=== PATIENT | female | born 1995 | race Caucasian/White ===

== ENCOUNTER 2018-05-15 14:15 | Outpatient (CLI) | payer MEDICAID | END 2018-05-15 15:50 | disposition home or self-care (01) | LOC: OBT 14:15 → L-D 14:15 → OBT 15:50 | DX: O36.8130 Decreased fetal movements, third trimester, not applicable or unspecified (principal); Z3A.38 38 weeks gestation of pregnancy | CPT/HCPCS: 76815; 76818 ==

== ENCOUNTER 2018-05-17 10:43 | Outpatient (CLI) | payer MEDICAID | END 2018-05-17 12:30 | disposition home or self-care (01) | LOC: OBT 10:43 → L-D 10:43 → OBT 12:30 | DX: O36.8130 Decreased fetal movements, third trimester, not applicable or unspecified (principal); Z3A.38 38 weeks gestation of pregnancy | CPT/HCPCS: 76818 ==

== ENCOUNTER 2018-05-18 12:16 | Outpatient (CLI) | payer MEDICAID | END 2018-05-18 15:50 | disposition home or self-care (01) | LOC: OBT 12:16 → L-D 12:16 → OBT 15:50 | DX: O41.03X0 Oligohydramnios, third trimester, not applicable or unspecified (principal); Z3A.38 38 weeks gestation of pregnancy | CPT/HCPCS: 76818 ==

== ENCOUNTER 2018-05-20 12:50 | Outpatient (CLI) | payer MEDICAID ==
[2018-05-20 14:03] LABS: ADD UMIC NO; UR ASCORBIC ACID NEGATIVE (NEGATIVE); UR BILIRUBIN (Dip) NEGATIVE (NEGATIVE); UR BLOOD (Dip) NEGATIVE (NEGATIVE); UR CLARITY CLEAR (CLEAR); UR COLOR YELLOW (YELLOW); UR GLUCOSE (Dip) NEGATIVE (NEGATIVE); UR KETONES (Dip) NEGATIVE (NEGATIVE); UR LEUKOCYTE ESTERASE (Dip) NEGATIVE Leu/ul (NEGATIVE); UR NITRITE (Dip) NEGATIVE (NEGATIVE); UR TOTAL PROTEIN (Dip) NEGATIVE (NEGATIVE); UR UROBILINOGEN (Dip) NEGATIVE (NEGATIVE)
[2018-05-20 14:16] LABS: RUPTURE FETAL MEMBRANES NEGATIVE (NEGATIVE)
== END 2018-05-20 16:00 | disposition home or self-care (01) ==
LOC: OBT 12:50 → L-D 12:50 → OBT 16:00
DX: O47.1 False labor at or after 37 completed weeks of gestation (principal); Z3A.39 39 weeks gestation of pregnancy
CPT/HCPCS: 76818; 81003; 84112; 87086

== ENCOUNTER 2018-05-26 07:04 | Inpatient (IN) | payer MEDICAID ==
[2018-05-26] MEDS ORDERED: CARBOPROST 250 MCG INJ IM (08:00)
[2018-05-26] MEDS ORDERED: MISOPROSTOL 200 MCG TAB PR (08:00)
[2018-05-26] MEDS ORDERED: IBUPROFEN 600 MG TAB PO (08:00)
[2018-05-26] MEDS ORDERED: LIDOCAINE 1% (MPF) 30 ML INJ INJ (08:00)
[2018-05-26] MEDS ORDERED: METHYLERGONOVINE 0.2 MG INJ IM (08:00)
[2018-05-26] MEDS ORDERED: BUTORPHANOL 2 MG INJ IV (08:00)
[2018-05-26] MEDS ORDERED: OXYTOCIN 30 UNITS/LR 500 ML IV (08:00)
[2018-05-26] MEDS: MISOPROSTOL 100 MCG TAB VAG (09:00)
[2018-05-26] MEDS: LACTATED RINGER'S 1,000 ML IV* ×2 (09:17→17:04)
[2018-05-26 09:39] LABS: ADD MAN DIFF? NO
[2018-05-26 09:44] LABS: WHITE BLOOD COUNT 7.2 10^3/ul (4.8-10.8)
[2018-05-26 09:44] LABS: BASOPHILS % 0.1 % (0.0-2.0); EOSINOPHILS % 0.6 % (0.0-7.0); HEMATOCRIT 36.6 % (37.0-47.0); HEMOGLOBIN 12.2 g/dl (12.0-16.0); LYMPHOCYTES # 1.4 10^3/ul (0.8-2.9); LYMPHOCYTES % 19.1 % (15.0-51.0); MEAN CORPUSCULAR HEMOGLOBIN 28.8 pg (29.0-33.0); MEAN CORPUSCULAR HGB CONC 33.3 g/dl (32.0-37.0); MEAN CORPUSCULAR VOLUME 86.5 fl (82.0-101.0); MEAN PLATELET VOLUME 10.9 fl (7.4-10.4); MONOCYTE # 0.6 10^3/ul (0.3-0.9); MONOCYTES % 8.9 % (0.0-11.0); NEUTROPHIL # 5.1 10^3/ul (1.6-7.5); NEUTROPHILS % 70.3 % (39.0-77.0); PLATELET COUNT 200 10^3/UL (140-415); RED BLOOD COUNT 4.23 10^6/ul (4.20-5.40); RED CELL DISTRIBUTION WIDTH 15.1 % (11.5-14.5)
[2018-05-26 10:07] LABS: INR 0.78; PROTIME 10.9 Sec (11.9-14.9); PT RATIO 0.9
[2018-05-26] MEDS: AMPICILLIN 2 GM/NS (PMX) 100 ML IV (10:36)
[2018-05-26] MEDS: AMPICILLIN 1 GM/NS (PMX) 50 ML IV ×3 (12:00→18:28)
[2018-05-26] MEDS: OXYTOCIN 30 UNITS/LR 500 ML IV (14:01)
[2018-05-26 15:24] LABS: RAPID PLASMA REAGIN NONREACTIVE (NR)
[2018-05-27] MEDS: LACTATED RINGER'S 1,000 ML IV* ×3 (00:46→10:18)
[2018-05-27] MEDS ORDERED: ONDANSETRON 4 MG INJ IV (02:00)
[2018-05-27] MEDS ORDERED: HYDROmorphONE 0.5 MG/0.5 ML SYG IV ×2 (02:00)
[2018-05-27] MEDS ORDERED: DIPHENHYDRAMINE 50 MG INJ IV (02:00)
[2018-05-27] MEDS ORDERED: NALOXONE (0.4 MG/ML) INJ IV (02:00)
[2018-05-27] MEDS ORDERED: ZOLPIDEM 5 MG TAB PO ×2 (02:00→18:00)
[2018-05-27] MEDS ORDERED: KETOROLAC 30 MG INJ IV (02:00)
[2018-05-27] MEDS: FENTAnyl 2MCG/ML-ROPIV 0.2% 100 ML BAG EPI (12:39)
[2018-05-27] MEDS: OXYTOCIN 30 UNITS/LR 500 ML IV ×2 (15:19→18:13)
[2018-05-27] MEDS ORDERED: SENNA/DOCUSATE NA (8.6MG/50MG) TAB PO (18:00)
[2018-05-27] MEDS ORDERED: METHYLERGONOVINE 0.2 MG INJ IM (18:00)
[2018-05-27] MEDS ORDERED: NACL 0.9% 3 ML SYG IV (18:00)
[2018-05-27] MEDS ORDERED: OXYCODONE/ASPIRIN (4.88/325) TAB PO (18:00)
[2018-05-27] MEDS ORDERED: OXYTOCIN 30 UNITS/LR 500 ML IV (18:00)
[2018-05-27] MEDS ORDERED: CARBOPROST 250 MCG INJ IM (18:00)
[2018-05-27] MEDS ORDERED: MISOPROSTOL 200 MCG TAB PR (18:00)
[2018-05-27] MEDS: IBUPROFEN 600 MG TAB PO ×2 (18:11→23:45)
[2018-05-27] MEDS: WITCH HAZEL/GLYCERIN PAD PR (18:36)
[2018-05-27] MEDS: BENZOCAINE 20% 56 ML SPRAY TOP (18:36)
[2018-05-27] MEDS: LANOLIN 7 GM TUBE TOP (18:36)
[2018-05-27] MEDS: SENNA/DOCUSATE NA (8.6MG/50MG) TAB PO (22:50)
[2018-05-28] MEDS: IBUPROFEN 600 MG TAB PO ×3 (05:53→18:22)
[2018-05-28 08:30] LABS: ADD MAN DIFF? NO
[2018-05-28] MEDS ORDERED: MAGNESIUM HYDROXIDE 30ML CUP PO (08:30)
[2018-05-28 08:37] LABS: WHITE BLOOD COUNT 10.4 10^3/ul (4.8-10.8)
[2018-05-28 08:37] LABS: BASOPHILS % 0.1 % (0.0-2.0); EOSINOPHILS # 0.1 10^3/ul (0.0-0.5); EOSINOPHILS % 0.5 % (0.0-7.0); HEMATOCRIT 30.9 % (37.0-47.0); HEMOGLOBIN 10.5 g/dl (12.0-16.0); LYMPHOCYTES % 19.1 % (15.0-51.0); MEAN CORPUSCULAR VOLUME 85.4 fl (82.0-101.0); MONOCYTE # 0.8 10^3/ul (0.3-0.9); MONOCYTES % 7.5 % (0.0-11.0); NEUTROPHIL # 7.5 10^3/ul (1.6-7.5); NEUTROPHILS % 72.2 % (39.0-77.0); PLATELET COUNT 175 10^3/UL (140-415); RED BLOOD COUNT 3.62 10^6/ul (4.20-5.40); RED CELL DISTRIBUTION WIDTH 15.3 % (11.5-14.5)
[2018-05-28] MEDS: SENNA/DOCUSATE NA (8.6MG/50MG) TAB PO ×2 (09:00→21:31)
[2018-05-28 12:08] LABS: ADD UMIC YES; UR ASCORBIC ACID NEGATIVE (NEGATIVE); UR BILIRUBIN (Dip) NEGATIVE (NEGATIVE); UR BLOOD (Dip) 1+ mg/dL (NEGATIVE); UR CLARITY CLEAR (CLEAR); UR COLOR STRAW (YELLOW); UR GLUCOSE (Dip) NEGATIVE (NEGATIVE); UR KETONES (Dip) NEGATIVE (NEGATIVE); UR LEUKOCYTE ESTERASE (Dip) NEGATIVE Leu/ul (NEGATIVE); UR NITRITE (Dip) NEGATIVE (NEGATIVE); UR RBC 0 /HPF (0-5); UR SPECIFIC GRAVITY (Dip) 1.002 (1.003-1.030); UR TOTAL PROTEIN (Dip) NEGATIVE (NEGATIVE); UR UROBILINOGEN (Dip) NEGATIVE (NEGATIVE); UR WBC 0 /HPF (0-5)
[2018-05-28] MEDS: BENZOCAINE 20% 56 ML SPRAY TOP (18:42)
[2018-05-28] MEDS: WITCH HAZEL/GLYCERIN PAD PR (18:42)
[2018-05-29] MEDS: IBUPROFEN 600 MG TAB PO ×4 (00:28→18:03)
[2018-05-29] MEDS: SENNA/DOCUSATE NA (8.6MG/50MG) TAB PO ×2 (09:00→21:00)
[2018-05-29] MEDS: DIPHTH/TET/ACEL PERTUSS (ADULT) 0.5 ML VIAL IM* (11:28)
[2018-05-30] MEDS: IBUPROFEN 600 MG TAB PO ×2 (00:09→05:46)
[2018-05-30] MEDS: SENNA/DOCUSATE NA (8.6MG/50MG) TAB PO (09:00)
== END 2018-05-30 12:10 | disposition home or self-care (01) | DRG 776 ==
LOC: OBT 07:04 → PP1 05-27 17:45 → L-D 07:05 → OBT 07:45 → L-D 07:45
PROVIDERS: Obstetrics & Gynecology
PROC: 10E0XZZ Delivery of Products of Conception, External Approach (ICD-10-PCS; principal; 2018-05-27)
PROC: 0HQ9XZZ Repair Perineum Skin, External Approach (ICD-10-PCS; 2018-05-27)
DX: O87.0 Superficial thrombophlebitis in the puerperium (principal); O70.0 First degree perineal laceration during delivery; Z23 Encounter for immunization
CPT/HCPCS: 62319; 76815; 76818; 81001; 85025; 85610; 85730; 86592; 86850; 86900; 86901; 87086; 90686; 90715